=== PATIENT | male | born 1990 | race Caucasian/White ===

== ENCOUNTER 2022-10-04 19:44 | Emergency (ER) | payer OTHER ==
[~2022-10-04] VITALS: Ht 165.1 cm; Wt 68.0 kg
[2022-10-04 19:53] VITALS: BP 149/105
[2022-10-04] MEDS ORDERED: ACETAMINOPHEN 325MG TABLET PO NR (20:15)
[2022-10-04] MEDS ORDERED: LIDOCAINE 5% PATCH TOP ONE (20:15)
[2022-10-04] MEDS ORDERED: ACETAMINOPHEN 325MG TABLET PO ONE (20:15)
[2022-10-04] MEDS ORDERED: LIDOCAINE 5% PATCH TOP NR (20:15)
[2022-10-04] MEDS ORDERED: ACET-2708 MT (20:46)
== END 2022-10-04 22:44 | disposition home or self-care (01) ==
LOC: ER 19:44
DX: S09.8XXA Other specified injuries of head, initial encounter (principal); S20.212A Contusion of left front wall of thorax, initial encounter; Z87.828 Personal history of other (healed) physical injury and trauma; Z98.890 Other specified postprocedural states; V03.99XA Pedestrian with other conveyance injured in collision with car, pick-up truck or van, unspecified whether traffic or nontraffic accident, initial encounter; Y93.89 Activity, other specified; Y92.488 Other paved roadways as the place of occurrence of the external cause
CPT/HCPCS: 71101; 93005; 99284